=== PATIENT | male | born 1990 | race American Indian/Alaskan Native ===

== ENCOUNTER 2019-05-23 18:58 | Emergency (ER) | payer OTHER ==
[~2019-05-23] VITALS: Ht 170.2 cm; Wt 90.7 kg
[~2019-05-23 18:58] MED LIST: IBUPROFEN600 MG PO; KEFLEX500 MG PO; NAPROSYN500 MG PO
--- OUTSIDE RECORDS SUMMARY | 2019-05-23 19:00 | XMS ---
PreManage Notification: HEVER MCLEAN Security Transition Advisor Events No recent Security Events currently on file [facility] MET [facility] There are no care providers on record at this time. [facility]an has no Care Guidelines for this patient. More VISIT COUNT (12 MO.) 1 ARTURO Ledesma TOTAL 1 NOTE: Visits indicate total known visits. ED/C VISIT TRACKING (12 MO.) 05/23/2019 18:58 [facility] [place] TYPE: Emergency COMPLAINT: - EYE PROBLEMS INPATIENT VISIT TRACKING (12 MO.) No inpatient visits to display in this time frame [id number]
[2019-05-23] MEDS ORDERED: [UNRECOGNIZED DRUG - OTHER] MISC (19:10)
[2019-05-23] MEDS ORDERED: VISINE TEARS DR15 ML OPTH (19:11)
== END 2019-05-23 21:18 | disposition home or self-care (01) ==
LOC: ED 18:58
DX: T43.621A Poisoning by amphetamines, accidental (unintentional), initial encounter (principal); T26.92XA Corrosion of left eye and adnexa, part unspecified, initial encounter; T26.91XA Corrosion of right eye and adnexa, part unspecified, initial encounter; H10.213 Acute toxic conjunctivitis, bilateral; F17.200 Nicotine dependence, unspecified, uncomplicated
CPT/HCPCS: 99283

== ENCOUNTER 2020-03-29 12:36 | Emergency (ER) | payer OTHER ==
[~2020-03-29] VITALS: Ht 167.6 cm; Wt 90.7 kg
[~2020-03-29 12:36] MED LIST changes: +VISINE TEARS DR15 ML OPTH; +[UNRECOGNIZED DRUG - OTHER] MISC
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
== END 2020-03-29 14:16 | disposition home or self-care (01) ==
LOC: ED 12:36
DX: U07.1 COVID-19 (principal); F19.129 Other psychoactive substance abuse with intoxication, unspecified; F17.200 Nicotine dependence, unspecified, uncomplicated
CPT/HCPCS: 80053; 81001; 84484; 85025; 99284; G0480

== ENCOUNTER 2020-12-28 21:14 | Emergency (ER) | payer OTHER ==
[~2020-12-28] VITALS: Ht 167.6 cm; Wt 90.7 kg
[~2020-12-28 21:14] MED LIST changes: +VALTREX1000 MG PO
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
== END 2020-12-28 21:57 | disposition home or self-care (01) ==
LOC: ED 21:14
DX: K13.79 Other lesions of oral mucosa (principal); F17.200 Nicotine dependence, unspecified, uncomplicated
CPT/HCPCS: 99282

== ENCOUNTER 2021-04-04 08:46 | Emergency (ER) | payer OTHER ==
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
--- NOTE | 2021-04-05 09:01 | EKG ---
[facility] [address] [place], [place] [address] Signed Sinus tachycardia Cannot rule out Anterior infarct , age undetermined Abnormal ECG No previous ECGs available Confirmed by JAZLYN ALMANZA MD ([id number]) on 04/05/2021 9:00:55 AM Electronically Signed By: JAZLYN ALMANZA MD 04/05/21900 PATIENT NAME: CARIDADHEVER III Electrocardiogram DATE OF : [birth year] PHYSICIAN: JAZLYN ALMANZA MD REPORT #: [id number] REPORT IS CONFIDENTIAL AND NOT TO BE RELEASED WITHOUT AUTHORIZATION
== END 2021-04-04 16:21 | disposition home or self-care (01) ==
LOC: ED 08:46
DX: S01.81XA Laceration without foreign body of other part of head, initial encounter (principal); S40.011A Contusion of right shoulder, initial encounter; S60.221A Contusion of right hand, initial encounter; F15.90 Other stimulant use, unspecified, uncomplicated; W10.9XXA Fall (on) (from) unspecified stairs and steps, initial encounter; F17.200 Nicotine dependence, unspecified, uncomplicated
CPT/HCPCS: 12011; 70450; 71045; 71260; 72125; 73060; 73090; 73130; 74177; 80053; 81001; 83605; 84484; 85025; 93005; 93010; 99284-25; G0480; J2060; J7030; Q9967

== ENCOUNTER 2024-07-19 14:37 | Emergency (ER) | payer OTHER ==
[~2024-07-19] VITALS: Ht 167.6 cm; Wt 107.0 kg
[2024-07-19] MEDS ORDERED: LORazepam 2 MG/ML VIAL IV ONE (16:00)
[2024-07-19] MEDS ORDERED: SODIUM CHLORIDE 0.9% 1,000 ML IV ONE (16:00)
[2024-07-19] MEDS ORDERED: ondansetron HCL 4 MG/2 ML VIAL IV PRN (16:00)
[2024-07-19 16:38] LABS: BASOPHILS 0.3 % (0-2); EOSINOPHILS 0.4 % (0-6); HEMATOCRIT 44.9 % (35.0-50.0); HEMOGLOBIN 15.7 g/dL (12.0-18.0); LYMPHOCYTES 15.3 % (24-44); MCV 88.7 fl (81-99); MONOCYTES 11.5 % (0-12); NEUTROPHILS 72.5 % (39-80); PLATELET COUNT 283 K/uL (140-440); RBC 5.06 M/ul (4.3-5.7); RDW 13.5 (10.5-15.0)
[2024-07-19 16:51] LABS: ALBUMIN 4.1 g/dL (3.4-5.0); ALBUMIN/GLOBULIN RATIO 1.17 (1.1-2.4); ANION GAP 17.4 (7-21); BILIRUBIN, TOTAL 0.9 ng/dL (0.2-1.0); BUN/CREATININE RATIO 10.22 (6.0-28.6); CALCIUM 9.2 mg/dL (8.5-10.1); CREATININE, SERUM 0.88 mg/dL (0.70-1.30); POTASSIUM 3.4 mmol/L (3.5-5.1); PROTEIN, TOTAL 7.6 g/dL (6.4-8.2)
[2024-07-19 17:24] VITALS: BP 135/85
== END 2024-07-19 17:30 | disposition home or self-care (01) ==
LOC: ED 14:37
PROVIDERS: Emergency Medicine
DX: R10.9 Unspecified abdominal pain (principal); F17.200 Nicotine dependence, unspecified, uncomplicated; E86.0 Dehydration; F15.90 Other stimulant use, unspecified, uncomplicated
CPT/HCPCS: 36415; 80053; 83690; 85025; 96374; 96375; 99284-25; J2060; J2405; J7030

== ENCOUNTER 2025-03-17 12:16 | Emergency (ER) | payer OTHER ==
[~2025-03-17] VITALS: Ht 167.6 cm; Wt 95.0 kg
[2025-03-17 13:11] VITALS: BP 134/89
== END 2025-03-17 13:05 | disposition other institution, planned readmission (95) ==
LOC: ED 12:16
DX: Z04.1 Encounter for examination and observation following transport accident (principal); F17.200 Nicotine dependence, unspecified, uncomplicated
CPT/HCPCS: 99284